=== PATIENT | female | born 1960 | race American Indian/Alaskan Native ===

== ENCOUNTER 2021-12-22 08:39 | Outpatient (CLI) | payer OTHER ==
[2021-12-22 13:37] LABS: BUN/Creatinine Ratio 19; Blood Urea Nitrogen 17 mg/dL (7-17); Calcium 9.3 mg/dL (8.4-10.2); Hemolysis Index 13
== END 2021-12-22 08:40 | disposition home or self-care (01) ==
LOC: LABHHL 08:39
PROVIDERS: ATTEND Internal Medicine
DX: R73.03 Prediabetes (principal); N28.9 Disorder of kidney and ureter, unspecified
CPT/HCPCS: 36415; 80048; 83036